=== PATIENT | male | born 1940 | race Caucasian/White ===

== ENCOUNTER → 2017-09-29 | Outpatient (CLI) | payer MEDICARE, OTHER ==
[~2017-09-29] MED LIST: ALEN70TA5 PO; CALC-126 PO; CHOL3000 PO; GLUC-121 PO; MAGN400T7 PO; MULT-658 PO
== END | disposition home or self-care (01) ==
LOC: STAR 13:49
PROVIDERS: ATTEND Internal Medicine
DX: Z01.818 Encounter for other preprocedural examination (principal); K86.2 Cyst of pancreas; I25.2 Old myocardial infarction
CPT/HCPCS: 93005

== ENCOUNTER 2017-10-20 06:43 | Day surgery (SDC) | payer MEDICARE, OTHER ==
[~2017-10-20] VITALS: Ht 177.8 cm; Wt 56.2 kg
[2017-10-20] MEDS ORDERED: LACTATED RINGERS 1,000 ML IV SCH (06:57)
[2017-10-20] MEDS ORDERED: CEFAZOLIN 1,000 MG ONE (09:06)
[2017-10-20] MEDS ORDERED: PROPOFOL 10 MG/ML, 20ML ONE (09:06)
[2017-10-20] MEDS ORDERED: FENTANYL PF 100 MCG/2ML IV PRN (09:30)
[2017-10-20] MEDS ORDERED: ONDANSETRON 2MG/ML, 2ML IVPush PRN (09:30)
== END 2017-10-20 11:35 ==
LOC: OUT 06:43
PROVIDERS: ATTEND Internal Medicine
DX: K86.2 Cyst of pancreas (principal); Z88.8 Allergy status to other drugs, medicaments and biological substances
CPT/HCPCS: 43242; J0690; J2704

== ENCOUNTER 2018-01-12 08:12 | Day surgery (SDC) | payer MEDICARE ==
[~2018-01-12] VITALS: Ht 180.3 cm; Wt 56.4 kg
[~2018-01-12 08:12] MED LIST changes: +SUCR1TAB PO
[2018-01-12] MEDS ORDERED: LACTATED RINGERS 1,000 ML IV SCH (08:39)
[2018-01-12 09:03] VITALS: BP 123/72
[2018-01-12] MEDS ORDERED: PROPOFOL 10 MG/ML, 20ML ONE ×2 (09:21→10:08)
[2018-01-12] MEDS ORDERED: WATER-INJECTION,STERILE 10 ML IV ONE (10:02)
[2018-01-12] MEDS ORDERED: CEFAZOLIN 1,000 MG ONE ×2 (10:02)
== END 2018-01-12 12:10 ==
LOC: OUT 08:12
PROVIDERS: ATTEND Internal Medicine
DX: K86.2 Cyst of pancreas (principal); Z88.8 Allergy status to other drugs, medicaments and biological substances; Z85.828 Personal history of other malignant neoplasm of skin
CPT/HCPCS: 43242; J0690; J2704; J7120